=== PATIENT | male | born 1955 | race Caucasian/White ===

== ENCOUNTER → 2016-09-01 | Outpatient (CLI) | payer OTHER ==
[2015-10-06 13:10] VITALS: BP 130/96
[~2016-09-01] MED LIST: HYDR25TA9 PO; METO50TA2 PO; RIVA10TA PO
--- NOTE | 2016-09-01 14:07 | RAD ---
Left groin ultrasound, 09/01/2016: History: Left groin swelling, previous surgery The area of clinical concern in the left groin was carefully scanned. There is a 4 cm mass containing cystic appearing components as well as other areas of medium and increased echogenicity. No color flow is seen internally. Given the history of surgery in this this is likely a hematoma or infected hematoma. The process extends to the posterior margin of the skin. The underlying femoral artery and vein are patent. IMPRESSION: 4 cm nonvascular complex subcutaneous mass at the left groin suggesting a postsurgical hematoma or infected hematoma.
== END | disposition home or self-care (01) ==
LOC: US 12:46
PROVIDERS: ATTEND Family Medicine
DX: R19.09 Other intra-abdominal and pelvic swelling, mass and lump (principal); T14.8 Other injury of unspecified body region; X58.XXXD Exposure to other specified factors, subsequent encounter
CPT/HCPCS: 76881

== ENCOUNTER → 2016-11-23 | Outpatient (CLI) | payer OTHER ==
[2015-10-06 13:10] VITALS: BP 130/96
[2016-11-23 17:49] LABS: CALCIUM 8.9 mg/dL (8.5-10.1); CREATININE 1.5 mg/dL (0.7-1.3); GFR 47.7; POTASSIUM 3.9 mmol/L (3.5-5.1)
[2016-11-23 17:59] LABS: BASO # 0.1 x10^3/uL (0.0-0.2); BASO % 1 % (0-3); EOS # 0.1 x10^3/uL (0.0-0.7); EOS % 1 % (0-3); HEMATOCRIT 35.3 % (39.0-53.0); HEMOGLOBIN 11.6 g/dL (13.0-17.5); LYMPH # 2.4 x10^3/uL (1.0-4.8); LYMPH % 27 % (24-48); MEAN CORPUSCULAR HEMOGLOBIN 25 pg (25-35); MEAN CORPUSCULAR HGB CONC 33 g/dL (31-37); MEAN CORPUSCULAR VOLUME 77 fL (79-100); MONO # 0.5 x10^3/uL (0.0-1.1); MONO % 5 % (0-9); NEUT # 5.8 x10^3uL (1.8-7.7); NEUT % 66 % (31-73); PLATELET COUNT 330 x10^3/uL (140-400); RED BLOOD COUNT 4.56 x10^6/uL (4.30-5.70); RED CELL DISTRIBUTION WIDTH 17.6 % (11.5-14.5); WHITE BLOOD COUNT 8.8 x10^3/uL (4.0-11.0)
--- NOTE | 2016-11-24 08:15 | RAD ---
Chest, 2 views, 11/23/2016: History: Chest pain Comparison is made to a study from 03/31/2011. There has been an interval median sternotomy. The heart is at the upper limits of normal in size. There is tortuosity of the thoracic aorta. The pulmonary vascularity is normal. No pulmonary infiltrates are seen. There is no evidence of pleural fluid. IMPRESSION: 1. Aortic ectasia. 2. No acute cardiopulmonary abnormality is detected.
== END | disposition home or self-care (01) ==
LOC: LAB 16:39
PROVIDERS: ATTEND Internal Medicine Cardiovascular Disease
DX: I10 Essential (primary) hypertension (principal); R53.83 Other fatigue
CPT/HCPCS: 36415; 71020; 80048; 85027

== ENCOUNTER → 2020-08-24 | Outpatient (CLI) | payer OTHER ==
[2015-10-06 13:10] VITALS: BP 130/96
[~2020-08-24] MED LIST changes: +HYDR-2145 PO; -HYDR25TA9 PO; -METO50TA2 PO; +METO50TA6 PO
== END ==
LOC: LAB 16:08
PROVIDERS: ATTEND Internal Medicine Cardiovascular Disease
DX: I48.91 Unspecified atrial fibrillation (principal)
CPT/HCPCS: 36415; 80053; 84443; 85025; 85610

== ENCOUNTER → 2021-06-07 | Outpatient (CLI) | payer OTHER ==
[2015-10-06 13:10] VITALS: BP 130/96
--- NOTE | 2021-06-08 11:03 | CARD ---
MR#: [id number] Date of Study: 06/07/2021 Ordering Physician: HANNAH ROCHA, Referring Physician: HANNAH ROCHA, Tech: Courtney Winkler, [facility] APPROVED REPORT EXAM: Two-dimensional and M-mode echocardiogram with Doppler and color Doppler. Other Information Quality : AverageHR: 68bpm INDICATION Atrial Fibrillation Surgery/Intervention Aortic Aneurysm: Date: 2016 Thoracic RISK FACTORS Hypertension 2D DIMENSIONS Left Atrium(2D)3.0 (1.6-4.0cm)IVSd1.3 (0.7-1.1cm) Aortic Root(2D)4.2 (2.0-3.7cm)LVDd5.4 (3.9-5.9cm) LVOT Diameter2.4 (1.8-2.4cm)PWd1.1 (0.7-1.1cm) LVDs3.1 (2.5-4.0cm)FS (%) 43.2 % SV105.8 ml Aortic Valve AoV Peak Balta.164.3cm/sAoV VTI38.5cm AO Peak GR.10.8mmHgLVOT Peak Balta.109.0cm/s LVOT VTI 25.67cmAO Mean GR.6mmHg TIMMY (VMAX)3.68mo2XFJ (VTI)3.01cm2 AI P 1/2 [facility]681az Mitral Valve MV E Giyrxrrb397.7cm/sMV E Peak Gr.3mmHg MV DECEL [id number] A Gqftlvbw54.4cm/s MV E Mean Gr.1mmHgE/A Ratio1.4 Pulmonary Valve PV Peak Yqlbjttw62.5cm/sPV Peak Grad.3mmHg Tricuspid Valve TR P. [id number]/sRAP [id number] TR Peak Gr.18obWqVCIK90vtBm LEFT VENTRICLE The left ventricle is normal size. There is mild concentric left ventricular hypertrophy. The left ve ntricular systolic function is normal and the ejection fraction is within normal range. The Ejection Fraction is 50-55%. There is normal LV segmental wall motion. Transmitral Doppler flow pattern is Gra de II-pseudonormal filling dynamics. RIGHT VENTRICLE The right ventricle is mildly dilated. There is normal right ventricular wall thickness. The right ve ntricular systolic function is normal. ATRIA The left atrium is mildly dilated. The right atrium is borderline dilated. The interatrial septum is intact with no evidence for an atrial septal defect or patent foramen ovale as noted on 2-D or Dopple r imaging. AORTIC VALVE The aortic valve is normal in structure and function. Doppler and Color Flow revealed trace to mild a ortic regurgitation. There is no significant aortic valvular stenosis. Calculated aortic valve area i s 3.0 cm2 with maximum pressure gradient of 11 mmHg and mean pressure gradient of 6 mmHg. MITRAL VALVE The mitral valve is normal in structure and function. There is no evidence of mitral valve prolapse. There is no mitral valve stenosis. Doppler and Color-flow revealed trace mitral regurgitation. TRICUSPID VALVE The tricuspid valve is normal in structure and function. Doppler and Color Flow revealed trace tricus pid regurgitation with an estimated PAP of 29 mmHg. There is no tricuspid valve stenosis. PULMONIC VALVE The pulmonic valve is not well visualized. Doppler and Color Flow revealed trace pulmonic valvular re gurgitation. GREAT VESSELS The aortic root is mildly enlarged measuring 4.2 cm. The IVC is normal in size and collapses >50% wit h inspiration. PERICARDIAL EFFUSION There is no evidence of significant pericardial effusion. Critical Notification Critical Value: No <Conclusion> The left ventricle is normal size. The left ventricular systolic function is normal and the ejection fraction is within normal range. The Ejection Fraction is 50-55%. There is mild concentric left ventricular hypertrophy. Doppler and Color Flow revealed trace to mild aortic regurgitation. There is no significant aortic valvular stenosis. Calculated aortic valve area is 3.0 cm2 with maximum pressure gradient of 11 mmHg and mean pressure g radient of 6 mmHg. Doppler and Color-flow revealed trace mitral regurgitation. Doppler and Color Flow revealed trace tricuspid regurgitation with an estimated PAP of 29 mmHg. The aortic root is mildly enlarged measuring 4.2 cm. Signed by : Jean Duong MD Electronically Approved : 06/08/2021 11:02:35
== END ==
LOC: ECHO 14:50
PROVIDERS: ATTEND Internal Medicine Cardiovascular Disease
DX: I35.1 Nonrheumatic aortic (valve) insufficiency (principal); I51.7 Cardiomegaly; I77.819 Aortic ectasia, unspecified site; I48.0 Paroxysmal atrial fibrillation
CPT/HCPCS: 93306